=== PATIENT | male | born 1960 | race Caucasian/White ===

== ENCOUNTER 2020-04-05 10:41 | Outpatient (CLI) | payer OTHER, SELFPAY ==
[2020-04-05 11:13] LABS: SARS-CoV-2 Ag Positive (Negative)
[2020-04-06 17:28] LABS: SARS-CoV-2 RNA PCR Positive
== END 2020-04-05 10:42 | disposition home or self-care (01) ==
LOC: CHSLAB 10:47
PROVIDERS: PCP Family Medicine; Visit Provider Family Medicine
DX: U07.1 COVID-19 (principal); R05 Cough
CPT/HCPCS: 87426; C9803; U0003; U0005